=== PATIENT | male | born 1970 | race Caucasian/White ===

== ENCOUNTER 2016-07-02 | Outpatient (CLI) | payer MEDICAID | END 2016-07-02 22:37 | disposition critical access hospital (66) | CPT/HCPCS: A0425; A0427 ==

== ENCOUNTER 2016-07-02 23:12 | Observation (INO) | payer MEDICAID ==
[2016-07-02] MEDS ORDERED: SODIUM CHLORIDE 0.9% 1,000 ML IV STA (23:48)
[2016-07-03] MEDS ORDERED: IOPAMIDOL-300 100 ML VIAL IVP ONE ×2 (02:01→04:45)
[2016-07-03] MEDS ORDERED: KETOROLAC 30 MG/ML VIAL ONE (02:24)
[2016-07-03] MEDS ORDERED: KETOROLAC 60 MG/2 ML VIAL IVP STA (02:34)
[2016-07-03] MEDS ORDERED: SODIUM CHLORIDE 0.9% 1,000 ML IV STA ×2 (02:34→02:40)
[2016-07-03] MEDS ORDERED: ONDANSETRON ODT 4 MG TABLET TL PRN (06:46)
[2016-07-03] MEDS ORDERED: ACETAMINOPHEN 325 MG TABLET PO PRN (06:46)
[2016-07-03] MEDS ORDERED: SODIUM CHLORIDE FLUSH 0.9% 10 ML SYRINGE IVP PRN (06:46)
[2016-07-03] MEDS ORDERED: HYDROcod/ACETAM 5/325 MG TABLET PO PRN (06:46)
[2016-07-03] MEDS ORDERED: ONDANSETRON 4 MG/2 ML VIAL IVP PRN (06:46)
[2016-07-03] MEDS ORDERED: PANTOPRAZOLE 40 MG TABLET PO STA ×2 (06:48→08:20)
[2016-07-03] MEDS ORDERED: SODIUM CHLORIDE 0.9% 1,000 ML IV SCH (07:00)
[2016-07-03] MEDS ORDERED: POLYETHYLENE GLYCOL 3350 17 GM PACKET PO SCH (09:00)
[2016-07-03] MEDS ORDERED: METHOCARBAMOL 500 MG TABLET PO SCH (09:00)
[2016-07-03] MEDS ORDERED: GABAPENTIN 300 MG CAPSULE PO SCH (09:00)
[2016-07-03] MEDS ORDERED: SODIUM CHLORIDE FLUSH 0.9% 10 ML SYRINGE IVP SCH (14:00)
== END 2016-07-03 12:51 | disposition home or self-care (01) ==
DX: I95.1 Orthostatic hypotension (principal); G89.29 Other chronic pain; Z87.19 Personal history of other diseases of the digestive system; R51 Headache; R10.31 Right lower quadrant pain; M53.3 Sacrococcygeal disorders, not elsewhere classified; M54.5 Low back pain; F32.9 Major depressive disorder, single episode, unspecified; K21.9 Gastro-esophageal reflux disease without esophagitis; K57.30 Diverticulosis of large intestine without perforation or abscess without bleeding
CPT/HCPCS: 36415; 70450; 71020; 71275; 72220; 74174; 80048; 80306; 83036; 84484; 85025; 85379; 93005; 93306; 96361; 96374; 99284; 99285; A9270; G0378; Q9967

== ENCOUNTER 2016-07-18 14:13 | Outpatient (CLI) | payer MEDICAID | END 2016-07-18 14:14 | DX: R55 Syncope and collapse (principal) ==

== ENCOUNTER 2016-12-08 09:24 | Outpatient (CLI) | payer MEDICAID | END 2016-12-08 09:25 | disposition home or self-care (01) | LOC: LAB.F 09:24 | DX: Z02.1 Encounter for pre-employment examination (principal) ==